=== PATIENT | male | born 1970 ===

== ENCOUNTER 2018-05-10 14:59 | Inpatient (IN) | payer OTHER ==
[2018-05-10 15:36] LABS: BASO # 0.1 K/uL (0.0-0.2); BASO % 1.2 % (0.0-2.0); EOS % 0.5 % (0.0-4.0); HEMOGLOBIN 15.7 g/dL (12.0-18.0); LYMPH # 2.1 K/uL (1.0-4.3); LYMPH % 30.4 % (20.0-40.0); MEAN CELL VOLUME 90.5 fL (80.0-94.0); MEAN CORPUSCULAR HEMOGLOBIN 31.9 pg (27.0-31.0); MEAN CORPUSCULAR HGB CONC 35.3 g/dL (33.0-37.0); MONO # 0.5 K/uL (0.0-0.8); MONO % 7.2 % (0.0-10.0); NEUT # 4.3 K/uL (1.8-7.0); NEUT % 60.7 % (50.0-75.0); RBC 4.9 Mil/uL (4.40-5.90); RED CELL DISTRIBUTION WIDTH 13.7 % (11.5-14.5)
[2018-05-10 15:48] LABS: SQUAMOUS EPITHIAL 1 /hpf (0-5); URINE BILIRUBIN NEGATIVE (NEGATIVE); URINE BLOOD 1+ (NEGATIVE); URINE CLARITY Hazy (Clear); URINE COLOR Amber (YELLOW); URINE GLUCOSE (UA) 1+ mg/dL (Normal); URINE LEUKOCYTE ESTERASE NEG Leu/uL (Negative); URINE PROTEIN 1+ mg/dL (NEGATIVE)
[2018-05-10 16:08] LABS: ALB/GLOB RATIO 1.1 (1.0-2.1); ALBUMIN 4.3 g/dL (3.5-5.0); ALT/SGPT 75 U/L (21-72); AST/SGOT 72 U/L (17-59); BLOOD UREA NITROGEN 9 mg/dL (9-20); CALCIUM 8.8 mg/dl (8.6-10.4); GFR NON-AFRICAN AMERICAN > 60
[2018-05-10 16:18] LABS: BARBITURATES, UR NEGATIVE (NEGATIVE); OPIATES, UR NEGATIVE (NEGATIVE); PHENCYCLIDINE, UR NEGATIVE (NEGATIVE)
[2018-05-10 16:22] LABS: BENZODIAZEPINES, UR POSITIVE (NEGATIVE)
--- NOTE | 2018-05-10 18:45 | C.PDOC ---
History Of Present Illness 48-year-old male, presents to the emergency department, pre-screened for detox from alcohol. Patient drinks 5 bottles of per a day, last drink was this morning. He denies any HI/SI. No other complaints at this time. Time Seen by Provider: 05/10/18 15:38 Chief Complaint (Nursing): Substance Abuse History Per: Patient History/Exam Limitations: no limitations Past Medical History Reviewed: Historical Data, Nursing Documentation, Vital Signs Vital Signs: Last Vital Signs Temp 99.1 F 05/10/18 18:02 Pulse 110 H 05/10/18 18:02 Resp 20 05/10/18 18:02 BP 153/100 H 05/10/18 18:02 Pulse Ox 96 05/10/18 18:02 - Medical History PMH: Seizures Family History: States: No Known Family Hx - Social History Hx Alcohol Use: Yes Hx Substance Use: No - Immunization History Hx Tetanus Toxoid Vaccination: No Hx Influenza Vaccination: No Hx Pneumococcal Vaccination: No Review Of Systems Constitutional: Negative for: Fever Respiratory: Negative for: Shortness of Breath Gastrointestinal: Negative for: Nausea, Vomiting Neurological: Negative for: Weakness, Numbness Psych: Negative for: Psychosis, Suicidal ideation, Withdrawal Physical Exam - Physical Exam Appears: Non-toxic, No Acute Distress Skin: Warm, Dry, No Diaphoretic, No Rash Head: Atraumatic Eye(s): bilateral: Normal Inspection Nose: Normal Lips: Normal Appearing Neck: Normal ROM Cardiovascular: Rhythm Regular, No Murmur Respiratory: Normal Breath Sounds, No Accessory Muscle Use Gastrointestinal/Abdominal: Soft, No Tenderness Extremity: Normal ROM, No Deformity Neurological/Psych: Oriented x3, Normal Speech ED Course And Treatment - Laboratory Results Result Diagrams: 05/10/18 15:33 05/10/18 15:33 O2 Sat by Pulse Oximetry: 96 Pulse Ox Interpretation: Normal (RA) Medical Decision Making Medical Decision Making: Patient medically cleared, evaluated by crisis, and admitted to detox under Dr. Garnica. 25mg librium PO given prior to admission. 100mg labetalol PO given for mild HTN prior to transfer to floor. Disposition - Disposition Disposition: HOSPITALIZED Disposition Time: 18:44 Condition: FAIR - Clinical Impression Clinical Impression: Alcohol abuse - Scribe Statement The provider has reviewed the documentation as recorded by the Scribe (Sakina Chacon) Provider Attestation: All medical record entries made by the Scribe were at my direction and personally dictated by me. I have reviewed the chart and agree that the record accurately reflects my personal performance of the history, physical exam, medical decision making, and the department course for this patient. I have also personally directed, reviewed, and agree with the discharge instructions and disposition.
--- NOTE | 2018-05-10 19:22 | PCM.BM ---
<Duncan Manzano - Last Filed: 05/10/18 19:21> Treatment Plan Problems - Problems identified on initial assessmt potential for alcohol withdrawal Status: Active Treatment assets and liabiliti Patient Assests: adapts well, cooperative Patient Liabilities: substance abuse, medical problems - Milieu Protocol Maintain good personal hygiene: daily Encourage regular showers, daily Remind patient to perform daily oral care, daily Assist patient to perform ADL's Maintain personal safety: every shift Educate patient to report safety concerns to staff, every shift Monitor environment for contraband/sharps Medication safety: Monitor for expected outcome, potential side effects: every shift, Assess barriers to learning: every shift, Assess readiness for medication education: every shift <Clint Garnica - Last Filed: 05/11/18 14:24> - Diagnosis (1) Alcohol abuse Status: Acute Interventions: 05/11/18 14:24 * Assess 7x/week regarding severity of withdrawal * Educate regarding risks, benefits, side effects and alternatives of medications * Use Motivational Interviewing for abstinence * Use CBT for relapse prevention * Medication management for withdrawal symptoms * Encourage medication assisted treatment * <Chemo Mckeon - Last Filed: 05/15/18 13:54> - Diagnosis (1) Opioid use disorder, severe, dependence Status: Acute Interventions: 05/15/18 13:53 Assess 7x/week regarding severity of withdrawal Educate regarding risks, benefits, side effects and alternatives of medications Use Motivational Interviewing for abstinence Use CBT for relapse prevention Medication management for withdrawal symptoms Encourage medication assisted treatment
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
[2018-05-11] MEDS: Multiple Vitamins Tab PO SCH (09:36)
--- NOTE | 2018-05-11 14:24 | PCM.PSYCH ---
Initial Psychiatric Evaluation - Initial Psychiatric Evaluation Type of Admission: Voluntary Legal Status: Capacity Chief Complaint (in patient's own words): "Too much alcohol" History of Present Illness and Precipitating Events: Patient is a 48-year-old male, with 3 children aged 4, 18, and 21. Patient works in a [employer] job and lives with his sister in [place]. Patient is here for detox from alcohol. Patient states that he drinks 8-12 beers in the last 10 days. He reports that he drinks alcohol on and off for 4 years. He has been hospitalized 2x for alcohol intoxication in the past. The most recent hospitalization due to alcohol intoxication was 15 days ago. Patient denies any past or present drug use. He smokes 1-2 cigarettes per day. Patient states that he feels sick today. He has lost his appetite and has not eaten well in the last 6 days. He has nausea and diarrhea but he denies vomiting. He reports that he feels depressed recently. He denies having suicidal or homicidal ideation. He is stressed and worried about financial issues. Patient reports that he went to see a psychiatrist for his depression 4-5 months ago. Patient states that he had detox 1x at [facility] a year ago. He was also in rehab 2x in the past. The most recent rehab was in [place] about a year ago. He states that he was going AA meetings for about 4 months but he stopped going 5 months ago. Psych hx: depression Past medical hx: HTN - uncontrolled, not on meds Family hx: denies Current Medications: Active Medications Generic Name Dose Route Start Last Admin Trade Name Karl PRN Reason Stop Dose Admin Chlordiazepoxide 25 mg 05/10/18 20:21 05/10/18 20:49 Librium PO 25 mg Q4H PRN Administration Alcohol Withdrawal Chlordiazepoxide 25 mg 05/11/18 10:00 05/11/18 12:20 Librium PO 05/16/18 09:59 25 mg Q6 ANATOLY Administration Taper Clonidine HCl 0.1 mg 05/10/18 20:21 05/10/18 20:49 Catapres PO 0.1 mg Q4H PRN Administration Symptoms of alcohol withdrawl Folic Acid 1 mg 05/11/18 10:00 05/11/18 09:36 Folic Acid PO 1 mg DAILY ANATOLY Administration Gabapentin 300 mg 05/10/18 20:30 05/11/18 09:36 Neurontin PO 300 mg BID ANATOLY Administration Hydroxyzine HCl 50 mg 05/10/18 20:24 05/10/18 20:49 Atarax PO 50 mg Q6H PRN Administration Anxiety Ibuprofen 600 mg 05/10/18 20:24 Motrin Tab PO Q6H PRN Pain, moderate (4-7) Multivitamins 1 tab 05/11/18 10:00 05/11/18 09:36 Hexavitamin PO 1 tab DAILY ANATOLY Administration Thiamine HCl 100 mg 05/11/18 10:00 05/11/18 09:36 Vitamin B1 Tab PO 100 mg DAILY ANATOLY Administration Trazodone HCl 100 mg 05/11/18 08:39 Desyrel PO HS PRN Insomnia Past Psychiatric History - Past Psychiatric History Previous Treatment History: None Pertinent Medical Hx (Current Medical&Sleep Prob, Allergies): Allergies Allergy/AdvReac Type Severity Reaction Status Date / Time No Known Allergies Allergy Verified 05/10/18 15:08 No Known Home Med 05/10/18 Review of Systems - Neurological Neurological: Tremor - Psychiatric Psychiatric: Abnormal Sleep Pattern, Anhedonia, Anxiety, Change in Appetite, Depression, Difficulty Concentrating, Irritability. absent: Hallucinations, Homicidal Ideation, Paranoia, Suicidal Ideation Mental Status Examination - Personal Presentation Personal Presentation: Looks stated age - Affect Affect: Constricted - Motor Activity Motor Activity: Calm - Reliability in Providing Information Reliability in Providing Information: Good - Speech Speech: Organized - Mood Mood: Depressed, Anxious - Formal Thought Process Formal Thought Process: No Impairment - Cognitive Functions Orientation: Person, Place, Situation, Time Sensorium: Alert Attention/Concentration: Easily distracted Estimate of Intelligence: Average Judgement: Intact, as evidence by: Insight regarding need for hospitalization Memory: Recent intact, as evidence by: Ability to recall events of the day, Remote intact, as evidenced by: Abilit to recall sig. life events - Risk Risk: Withdrawal, Diminished functioning - Strength & Assets Inventory Strength & Assets Inventory: Cooperative - Limitations Limitations: Other DSM 5 DX - DSM 5 DSM 5 Diagnosis: Alcohol withdrawal Alcohol use d/o - severe Depressive d/o - unspecified HTN - Recommended/Plan of Treatment Treatment Recommendations and Plan of Treatment: Librium detox As needed medications Gabapentin for augmentation if needed All risks, benefits and alternatives of medications, including no medications, discussed and the patient understood and agreed. Attend groups and activities Supportive therapy and psychoeducation MA for abstinence CBT for relapse prevention Encourage MAT Refer to rehab or IOP Attend self-help groups as well MA for smoking cessation and patch if needed Medicine consult appreciated 34 min Projected ELOS: 4-5 days Prognosis: good
--- NOTE | 2018-05-11 16:31 | CP.PCM.PN ---
Subjective - Date & Time of Evaluation Date of Evaluation: 05/11/18 Time of Evaluation: 16:20 - Subjective Subjective: Medical Attending Note: Patient seen and examined. Patient reports primarily nausea, denies headache, denies change in vision, denies shortness of breathe, denies abdominal pain, denies edema, denies constipation, denies dysuria. Objective - Vital Signs/Intake and Output Vital Signs (last 24 hours): Temp Pulse Resp BP Pulse Ox 99.2 F 110 H 18 127/77 98 05/11/18 12:24 05/11/18 12:24 05/11/18 12:24 05/11/18 12:24 05/11/18 12:24 - Medications Medications: Current Medications Chlordiazepoxide (Librium) 25 mg PO Q4H PRN PRN Reason: Alcohol Withdrawal Last Admin: 05/10/18 20:49 Dose: 25 mg Chlordiazepoxide (Librium) 25 mg PO Q6 [facility]; Taper Stop: 05/16/18 09:59 Last Admin: 05/11/18 12:20 Dose: 25 mg Clonidine HCl (Catapres) 0.1 mg PO Q4H PRN PRN Reason: Symptoms of alcohol withdrawl Last Admin: 05/10/18 20:49 Dose: 0.1 mg Folic Acid (Folic Acid) 1 mg PO DAILY [facility] Last Admin: 05/11/18 09:36 Dose: 1 mg Gabapentin (Neurontin) 300 mg PO BID [facility] Last Admin: 05/11/18 09:36 Dose: 300 mg Hydroxyzine HCl (Atarax) 50 mg PO Q6H PRN PRN Reason: Anxiety Last Admin: 05/10/18 20:49 Dose: 50 mg Ibuprofen (Motrin Tab) 600 mg PO Q6H PRN PRN Reason: Pain, moderate (4-7) Multivitamins (Hexavitamin) 1 tab PO DAILY [facility] Last Admin: 05/11/18 09:36 Dose: 1 tab Thiamine HCl (Vitamin B1 Tab) 100 mg PO DAILY [facility] Last Admin: 05/11/18 09:36 Dose: 100 mg Trazodone HCl (Desyrel) 100 mg PO HS PRN PRN Reason: Insomnia - Labs Labs: 05/10/18 15:33 05/10/18 15:33 - Constitutional Appears: Non-toxic, No Acute Distress - Head Exam Head Exam: NORMAL INSPECTION - Eye Exam Eye Exam: EOMI - ENT Exam ENT Exam: Mucous Membranes Moist - Respiratory Exam Respiratory Exam: Clear to Ausculation Bilateral, NORMAL BREATHING PATTERN. absent: Rales, Rhonchi, Wheezes - Cardiovascular Exam Cardiovascular Exam: REGULAR RHYTHM, +S1, +S2 - GI/Abdominal Exam GI & Abdominal Exam: Soft, Normal Bowel Sounds. absent: Distended, Firm, Guarding, Rigid, Tenderness, Rebound - Extremities Exam Extremities Exam: absent: Pedal Edema, Tenderness - Neurological Exam Neurological Exam: Alert, Awake, Oriented x3 - Psychiatric Exam Psychiatric exam: Normal Affect, Normal Mood - Skin Skin Exam: Dry, Intact, Normal Color, Warm Assessment and Plan (1) Elevated BP without diagnosis of hypertension Assessment & Plan: - Blood pressure has normalized. - Likely secondary to withdrawal symptoms - Continue clonidine 0.1 q4h PRN Status: Acute (2) Alcohol abuse Assessment & Plan: - management per psych - Pt with history of etoh use, recent 10 day binge - UDS: etoh 69, + benzos - AST 72, ALT 75 - Continue Neurontin 300 BID - Continue folic acid - Continue thiamine - Continue multivitamin - Continue trazodone 50 PRN - Continue hydroxyzine 50 q6h PRN Status: Acute (3) Transaminitis Assessment & Plan: secondary to alcohol Status: Acute Attending/Attestation - Attestation I have personally seen and examined this patient.: Yes I have fully participated in the care of the patient.: Yes I have reviewed all pertinent clinical information, including history, physical exam and plan: Yes Notes (Text): medicine consult blood pressure has normalized. likely elevated blood pressure secondary to withdrawal. management of alcohol withdrawal per psych. medicine to sign off. please reconsult if needed. thank you.
[2018-05-12] MEDS: Multiple Vitamins Tab PO SCH (09:44)
--- NOTE | 2018-05-12 18:01 | PCM.PYCHPN ---
Psychiatric Progress Note - Psychiatric Progress Note Patient seen today, length of contact: 15 minutes Patient Chief Complaint: I was sleeping less last night, had some abdominal cramps in the morning but now I am okay. Problems Identified/Issues Discussed: Patient seen, chart reviewed, case discussed with the staff. Issues related to illness and treatment were discussed with the patient and staff. Reported compliant with treatment with no adverse affects. Tolerating treatment very well. Patient reported feeling0 much better with the treatment. Patient reported that his sleep was less, early this morning he had abdominal cramps but feeling better now. We will increase the dose of trazodone to 150 mg at bedtime. Patient understood and agreed. Calm and cooperative. Awake, alert and oriented 3. No psychomotor activity, good eye contact, memory intact. Aftercare discussed with the patient. Denied any delusions, auditory or visual hallucinations, suicidal ideations or homicidal ideations at the time of evaluation. Medical Problems: HTN Diagnostic Results: Reviewed DSM 5 Symptoms Update: Improving with treatment Medication Change: Yes (Dose of trazodone was increased to 150 mg.) Medical Record Reviewed: Yes Consults ordered or reviewed: Reviewed Mental Status Examination - Cognitive Function Orientation: Person, Place, Situation, Time Memory: Intact Attention: WNL Concentration: WNL Association: [facility] Fund of Knowledge: [facility] Decription of patient's judgement and insights: Good - Mood Mood: Anxious - Affect Affect: Other (Appropriate) - Speech Speech: Appropriate - Formal Thought Process Formal Thought Process: No Impairment Psychotic Thoughts and Behaviors: None - Suicidal Ideation Suicidal Ideation: No - Homicidal Ideation Homicidal Ideation: No Goal/Treatment Plan - Goal/Treatment Plan Need for Continued Stay: Remain at risks for inpatient hospitalization, Discharge may exacerbated symptoms, Severe functional impairment Progress Toward Problem(s) and Goals/Treatment Plan: Patient/staff education. Supportive therapy. CBT for relapse prevention. [place] for abstinence. We'll increase the dose of trazodone to 150 mg at bedtime. Continue rest of the treatment as before. Estimated Date of D/C: 05/17/18 - Smoking Cessation Smoking Cessation Initiated: No
[2018-05-13] MEDS: Multiple Vitamins Tab PO SCH (09:42)
--- NOTE | 2018-05-13 18:24 | PCM.PYCHPN ---
Psychiatric Progress Note - Psychiatric Progress Note Patient seen today, length of contact: 15 minutes Patient Chief Complaint: I am better than yesterday. My sleep was also good. Problems Identified/Issues Discussed: Patient seen, chart reviewed, case discussed with the staff. Issues related to illness and treatment were discussed with the patient and staff. Reported compliant with treatment with no adverse affects. Tolerating treatment very well. Patient reported feeling much better than yesterday, his sleep was also better with increasing dose of trazodone. Calm and cooperative. Awake, alert and oriented 3. No psychomotor activity, good eye contact, memory intact. Aftercare discussed with the patient. Denied any delusions, auditory or visual hallucinations, suicidal ideations or homicidal ideations at the time of evaluation. Medical Problems: HTN Diagnostic Results: Reviewed DSM 5 Symptoms Update: Improving with treatment. Medication Change: No Medical Record Reviewed: Yes Consults ordered or reviewed: Reviewed Mental Status Examination - Cognitive Function Orientation: Person, Place, Situation, Time Memory: Intact Attention: WNL Concentration: WNL Association: WNL Fund of Knowledge: [facility] Decription of patient's judgement and insights: Good - Mood Mood: Anxious (Much less than before) - Affect Affect: Other (Appropriate) - Speech Speech: Appropriate - Formal Thought Process Formal Thought Process: No Impairment Psychotic Thoughts and Behaviors: None - Suicidal Ideation Suicidal Ideation: No - Homicidal Ideation Homicidal Ideation: No Goal/Treatment Plan - Goal/Treatment Plan Need for Continued Stay: Remain at risks for inpatient hospitalization, Discharge may exacerbated symptoms, Severe functional impairment Progress Toward Problem(s) and Goals/Treatment Plan: Patient/staff education. Supportive therapy. CBT for relapse prevention. [place] for abstinence. Continue treatment as before. Estimated Date of D/C: 05/17/18 - Smoking Cessation Smoking Cessation Initiated: No
[2018-05-14] MEDS: Multiple Vitamins Tab PO SCH (09:20)
[2018-05-15] MEDS: Multiple Vitamins Tab PO SCH (09:12)
[2018-05-15 10:00] VITALS: BP 120/82; PULSE 101; RESP 17; TEMP 98.2; O2SAT 97
--- NOTE | 2018-05-15 22:17 | PCM.PYCHPN ---
Psychiatric Progress Note - Psychiatric Progress Note Patient seen today, length of contact: 15 minutes Patient Chief Complaint: I AM STILL HAVING RACING THOUGHTS Problems Identified/Issues Discussed: PT SEEN AND EXAMINED D/W TEAM D/W PT AFTERCARE PT WANTS TO GO TO [facility] Medical Problems: NOTHING ACUTE Diagnostic Results: REVIEWED DSM 5 Symptoms Update: SLEEPING BUT WITH VIVID DREAMS Medication Change: No Medical Record Reviewed: Yes Mental Status Examination - Cognitive Function Orientation: Person, Place, Situation, Time Memory: Intact Attention: WNL Concentration: WNL Association: WNL Fund of Knowledge: WNL - Mood Mood: Anxious (Much less than before) - Affect Affect: Other (Appropriate) - Speech Speech: Appropriate - Formal Thought Process Formal Thought Process: No Impairment - Suicidal Ideation Suicidal Ideation: No - Homicidal Ideation Homicidal Ideation: No Goal/Treatment Plan - Goal/Treatment Plan Need for Continued Stay: Remain at risks for inpatient hospitalization, Discharge may exacerbated symptoms, Severe functional impairment Progress Toward Problem(s) and Goals/Treatment Plan: ALCOHOL WITHDRAWAL LIBRIUM TAPER ALCOHOL USE DISORDER: CBT AL SUPPORTIV PSYCHOTHERAPY Estimated Date of D/C: 05/17/18 - Smoking Cessation Smoking Cessation Initiated: No
== END 2018-05-15 10:40 | disposition home or self-care (01) | DRG 754 ==
LOC: C.ER 14:59 → C.7D 18:41
PROVIDERS: ADMIT Psychiatry & Neurology Psychiatry; ATTEND Psychiatry & Neurology Psychiatry
PROC: GZHZZZZ Group Psychotherapy (ICD-10-PCS; principal; 2018-05-10)
PROC: GZ56ZZZ Individual Psychotherapy, Supportive (ICD-10-PCS; 2018-05-10)
DX: F32.9 Major depressive disorder, single episode, unspecified (principal); F11.20 Opioid dependence, uncomplicated; I10 Essential (primary) hypertension; F10.230 Alcohol dependence with withdrawal, uncomplicated; Y90.3 Blood alcohol level of 60-79 mg/100 ml; F17.210 Nicotine dependence, cigarettes, uncomplicated